=== PATIENT | female | born 1940 | race Caucasian/White ===

== ENCOUNTER 2019-07-18 08:58 | Emergency (ER) | payer MEDICARE, OTHER ==
[~2019-07-18] VITALS: Ht 142.2 cm; Wt 54.4 kg
[2019-07-18] MEDS ORDERED: HYDROCODONE-ACE10 ML PO ×2 (11:03→11:18)
[2019-07-18] MEDS ORDERED: Vesicare10 MG PO (11:14)
== END 2019-07-18 11:33 | disposition home or self-care (01) ==
LOC: ER 08:58
DX: T85.848A Pain due to other internal prosthetic devices, implants and grafts, initial encounter (principal)
CPT/HCPCS: 49465; 99283-25; Q9963